=== PATIENT | female | born 1995 | race Caucasian/White ===

== ENCOUNTER 2017-03-08 13:14 | Outpatient (CLI) | payer MEDICAID ==
[2017-03-08 14:58] LABS: APPEARANCE,URINE SLIGHTLY-CLOUDY; BILIRUBIN,URINE NEGATIVE (NEGATIVE); GLUCOSE, URINE NEGATIVE (NEGATIVE); KETONES,URINE NEGATIVE (NEGATIVE); LEUKOCYTE ESTERASE,URINE SMALL (NEGATIVE); NITRITE,URINE NEGATIVE (NEGATIVE); PROTEIN,URINE 30 mg/dL (NEGATIVE); URIC ACID CRYSTALS,URINE MODERATE /HPF
[2017-03-08 15:36] LABS: URINE BARBITURATES SCREEN NEGATIVE; URINE METHADONE SCREEN NEGATIVE; URINE OPIATES LOW NEGATIVE; URINE PHENCYCLIDINE SCREEN NEGATIVE
--- NOTE | 2017-03-08 17:17 | RADIOLOGY REPORT (SQ) ---
EXAM DESCRIPTION: U/S OB LIMITED COMPLETED DATE/TIME: 03/08/2017 5:07 pm REASON FOR STUDY: Cervical length, R/O labor at 28.3 EGA COMPARISON: None. TECHNIQUE: Limited transabdominal grayscale ultrasound for evaluation of specific requested obstetri tha parameters. LIMITATIONS: None. FINDINGS: CERVICAL LENGTH: 2.4 cm Closed. FHR: 171 beats per minute. PRESENTATION: Cephalic. OTHER: No other significant findings. IMPRESSION: LIMITED OBSTETRICAL ULTRASOUND WITH MEASURED PARAMETERS DELINEATED ABOVE. Trimester of : Third trimester - 28 weeks to delivery. TECHNICAL DOCUMENTATION: JOB ID: [id number] [employer]- All Rights Reserved
[2017-03-08] MEDS ORDERED: BETAMET ACET/BETAMET NA INJ 6 MG/1 ML IM ONE ×2 (17:31)
[2017-03-08] MEDS ORDERED: BETAMET ACET/BETAMET NA INJ 6 MG/1 ML ONE (17:41)
== END 2017-03-08 18:16 | disposition home or self-care (01) ==
LOC: LC 13:14
PROVIDERS: ATTEND Obstetrics & Gynecology
DX: O46.90 Antepartum hemorrhage, unspecified, unspecified trimester (principal); E86.0 Dehydration
CPT/HCPCS: 81001; 80307; 76815; J0702

== ENCOUNTER → 2017-03-09 | Outpatient (CLI) | payer MEDICAID ==
[~2017-03-09] MED LIST: BETAMET ACET/BETAMET NA INJ 6 MG/1 ML ONE
== END ==
LOC: LC 17:53
PROVIDERS: ATTEND Obstetrics & Gynecology
DX: Z34.90 Encounter for supervision of normal pregnancy, unspecified, unspecified trimester (principal)
CPT/HCPCS: 96372; J0702

== ENCOUNTER 2017-04-07 12:09 | Outpatient (CLI) | payer MEDICAID ==
[2017-04-07 13:00] LABS: AMORPHOUS SEDIMENT,URINE TRACE /HPF; APPEARANCE,URINE CLOUDY; BILIRUBIN,URINE NEGATIVE (NEGATIVE); GLUCOSE, URINE NEGATIVE (NEGATIVE); KETONES,URINE NEGATIVE (NEGATIVE); LEUKOCYTE ESTERASE,URINE SMALL (NEGATIVE); NITRITE,URINE NEGATIVE (NEGATIVE); PROTEIN,URINE 30 mg/dL (NEGATIVE); URINE SPECIFIC GRAVITY 1.027
[2017-04-07 13:14] LABS: URINE BARBITURATES SCREEN NEGATIVE; URINE METHADONE SCREEN NEGATIVE; URINE OPIATES LOW NEGATIVE; URINE PHENCYCLIDINE SCREEN NEGATIVE
--- NOTE | 2017-04-07 14:56 | Non Stress Test Report ---
Non Stress Test Datetime Report Generated by CPN: 04/07/2017 14:55 DEMOGRAPHIC EGA NST: 32.5 INDICATION Indication for Study: Other Indication for Study (NST) Other: Sycnopal episode and abdominal pain MONITORING Monitor Explained: Monitor Explained; Test Explained; Patient Verbalized Understanding Time on Monitor: 04/07/2017 12:25 Time off Monitor: 04/07/2017 14:06 NST Duration: 101 NST INTERVENTIONS NST Interventions: PO Hydration; Reposition Patient Physician Notified NST: Dr. Bermeo, strip reviewed by provider BABY A: [id number] BABY A Movement : Present Contraction Frequency : 1 UC traced FHR Baseline : 135 Accelerations : 15X15 Decelerations : Variable Variability : Moderate 6-25bpm NST Review: Meets Criteria for Reactive NST NST Review and Verified By : GEOVANNY Wagn Results: Reactive NST REPORT Report Trigger: Send Report
--- NOTE | 2017-04-07 15:13 | RADIOLOGY REPORT (SQ) ---
EXAM DESCRIPTION: U/S OB LIMITED COMPLETED DATE/TIME: 04/07/2017 2:44 pm REASON FOR STUDY: Placenta position COMPARISON: 03/08/2017 TECHNIQUE: Limited transabdominal grayscale ultrasound for evaluation of specific requested obstetri tha parameters. LIMITATIONS: None. FINDINGS: Placenta is anterior, grade 1. Along the superior and rightward margin of the placenta, a small less than 3 cm retroplacental fluid collection is present. This could represent a small hemat belkis or abruption. This finding was discussed with Dr. Bermeo, 1445 hours 04/07/2017. ESTELLE: 16.1 cm. FHR: 163 beats per minute. PRESENTATION: Cephalic. OTHER: No other significant findings. IMPRESSION: Small less than 3 cm retroplacental fluid collection along the superior and rightward as pect of a anterior placenta. This may represent a small hemorrhage. Findings discussed with Dr. Jacklyn valdez Trimester of : Third trimester - 28 weeks to delivery. TECHNICAL DOCUMENTATION: JOB ID: [id number] [employer]- All Rights Reserved
== END 2017-04-07 14:33 | disposition home or self-care (01) ==
LOC: LC 12:09
PROVIDERS: ATTEND Student in an Organized Health Care Education/Training Program
DX: O26.893 Other specified pregnancy related conditions, third trimester (principal); R55 Syncope and collapse; Z3A.32 32 weeks gestation of pregnancy
CPT/HCPCS: 59025; 76815; 80307; 81001; 82962

== ENCOUNTER 2017-04-07 14:42 | Emergency (ER) | payer MEDICAID ==
[2017-04-07 14:59] VITALS: BP 136/71
--- NOTE | 2017-04-07 15:16 | ER Document Report ---
ED Medical Screen (RME) - General Chief Complaint: Head Injury with LOC Stated Complaint: FALL/HEAD INJURY Time Seen by Provider: 04/07/17 15:13 Notes: Patient is currently 32 weeks . She states that she was shopping today when she became lightheaded and "passed out". She states she did hit her head. She states the loss of consciousness lasted for about 2 minutes she was told by her friend. Patient has already been to the [facility] floor for evaluation. She states he did do an ultrasound just before she came to the emergency department. She states she was told that everything looked "okay". However she said that they did tell her they would notify her with further results. Patient states she has some mild right-sided abdominal pain but no vaginal bleeding or discharge. TRAVEL OUTSIDE OF THE [place] IN LAST 30 DAYS: No - Related Data Allergies/Adverse Reactions: No Known Allergies Allergy (Verified 04/07/17 13:44) Past Medical History - Social History Chew tobacco use (# tins/day): No Frequency of alcohol use: None Drug Abuse: None Renal/ Medical History: Denies: Hx Peritoneal Dialysis Surgical Hx: Negative - Immunizations Hx Diphtheria, Pertussis, Tetanus Vaccination: Yes History of Influenza Vaccine for 03/2017 - 08/2017 Season: No Physical Exam - Vital signs Vitals: Temp Pulse Resp BP Pulse Ox 98.7 F 94 16 136/71 H 95 04/07/17 14:56 04/07/17 14:56 04/07/17 14:56 04/07/17 14:56 04/07/17 14:56 Course - Vital Signs Vital signs: Temp Pulse Resp BP Pulse Ox 98.7 F 94 16 136/71 H 95 04/07/17 14:56 04/07/17 14:56 04/07/17 14:56 04/07/17 14:56 04/07/17 14:56
[2017-04-07 15:37] LABS: ABSOLUTE BASOPHILS # (AUTO) 0.1 10^3/uL (0.0-0.2); ABSOLUTE EOSINOPHILS # (AUTO) 0.1 10^3/uL (0.0-0.6); ABSOLUTE LYMPHOCYTES (AUTO) 1.6 10^3/uL (0.5-4.7); ABSOLUTE MONOCYTES (AUTO) 0.8 10^3/uL (0.1-1.4); ABSOLUTE NEUT (AUTO) 16.3 10^3/uL (1.7-8.2); BASOPHILS % (AUTO) 0.3 % (0-2); EOSINOPHILS % (AUTO) 0.6 % (0-6); HEMATOCRIT 34.6 % (36.0-47.0); HEMOGLOBIN 12.1 g/dL (12.0-15.5); HGB HCT DIFFERENCE 1.7; LYMPHOCYTES % (AUTO) 8.5 % (13-45); MEAN CORPUSCULAR HEMOGLOBIN 28.4 pg (27.0-33.4); MEAN CORPUSCULAR VOLUME 81 fl (80-97); MONOCYTES % (AUTO) 4.1 % (3-13); RED BLOOD COUNT 4.28 10^6/uL (3.72-5.28); RED CELL DISTRIBUTION WIDTH 14.4 % (11.5-14.0); SEGMENTED NEUTROPHILS % (AUTO) 86.5 % (42-78); WHITE BLOOD COUNT 18.9 10^3/uL (4.0-10.5)
[2017-04-07 15:54] LABS: ALANINE AMINOTRANSFERASE 23 U/L (9-52); ALBUMIN 3.8 g/dL (3.5-5.0); ALKALINE PHOSPHATASE 164 U/L (38-126); ANION GAP 13 (5-19); ASPARTATE AMINO TRANSFERASE 14 U/L (14-36); BILIRUBIN,DIRECT 0.4 mg/dL (0.0-0.4); BILIRUBIN,TOTAL 0.4 mg/dL (0.2-1.3); BLOOD UREA NITROGEN 7 mg/dL (7-20); CALCIUM 9.4 mg/dL (8.4-10.2); CARBON DIOXIDE 22 mmol/L (22-30); CHLORIDE 102 mmol/L (98-107); CREATININE RESULT 0.55 mg/dL (0.52-1.25); GLUCOSE 101 mg/dL (75-110); POTASSIUM 4.4 mmol/L (3.6-5.0); SODIUM 136.7 mmol/L (137-145); TOTAL PROTEIN 6.6 g/dL (6.3-8.2)
[2017-04-07 15:55] LABS: APPEARANCE,URINE SLIGHTLY-CLOUDY; BILIRUBIN,URINE NEGATIVE (NEGATIVE); GLUCOSE, URINE NEGATIVE (NEGATIVE); KETONES,URINE TRACE mg/dL (NEGATIVE); LEUKOCYTE ESTERASE,URINE SMALL (NEGATIVE); NITRITE,URINE NEGATIVE (NEGATIVE); PROTEIN,URINE 30 mg/dL (NEGATIVE)
[2017-04-07] MEDS ORDERED: NORMAL SALINE 1000 ML 1,000 ML IV ONE (16:04)
--- NOTE | 2017-04-07 16:43 | ER Document Report ---
ED General - General Chief Complaint: Head Injury with LOC Stated Complaint: FALL/HEAD INJURY Time Seen by Provider: 04/07/17 15:13 Mode of Arrival: Ambulatory Information source: Patient Notes: Patient states she was shopping today at a clothing store when she began to feel cold and lightheaded. She states the next thing she knew she was on the ground. She states she was told by the person she was with that she passed out for about 2 minutes. She states she was told she did hit the back of her head when she fell. She states she does have some minor posterior head pain. She also has some right sided abdominal pain. He denies any vaginal discharge or bleeding. She does no longer feel dizzy but is slightly weak. Patient denies any chronic medical problems or previous surgeries. The abdominal pain is mild. It is constant. It is worse when touched and better if left alone. There is no radiation of the pain. TRAVEL OUTSIDE OF THE [place] IN LAST 30 DAYS: No - Related Data Allergies/Adverse Reactions: No Known Allergies Allergy (Verified 04/07/17 13:44) Past Medical History - General Information source: Patient - Social History Smoking Status: Never Smoker Chew tobacco use (# tins/day): No Frequency of alcohol use: None Drug Abuse: None Family History: Reviewed & Not Pertinent Patient has suicidal ideation: No Patient has homicidal ideation: No Renal/ Medical History: Denies: Hx Peritoneal Dialysis Surgical Hx: Negative - Immunizations Hx Diphtheria, Pertussis, Tetanus Vaccination: Yes Review of Systems - Review of Systems Constitutional: denies: Chills, Fever Cardiovascular: denies: Chest pain, Palpitations Respiratory: denies: Cough, Short of breath -: Yes All other systems reviewed and negative Physical Exam - Vital signs Vitals: Temp Pulse Resp BP Pulse Ox 98.7 F 94 16 136/71 H 95 04/07/17 14:56 04/07/17 14:56 04/07/17 14:56 04/07/17 14:56 04/07/17 14:56 Interpretation: Hypertensive - General General appearance: Appears well, Alert - HEENT Head: Normocephalic, Atraumatic Eyes: Normal Pupils: PERRL - Respiratory Respiratory status: No respiratory distress Chest status: Nontender Breath sounds: Normal Chest palpation: Normal - Cardiovascular Rhythm: Tachycardia Heart sounds: Normal auscultation Murmur: No - Abdominal Inspection: Normal Distension: No distension Bowel sounds: Normal Tenderness: Tender - Patient has mild abdominal tenderness to palpation of the right upper quadrant. She has an obvious gravid uterus. Organomegaly: No organomegaly - Back Back: Normal, Nontender - Extremities General upper extremity: Normal inspection, Nontender, Normal color, Normal ROM , Normal temperature General lower extremity: Normal inspection, Nontender, Normal color, Normal ROM , Normal temperature, Normal weight bearing. No: Stanislav's sign - Neurological Neuro grossly intact: Yes Cognition: Normal Orientation: AAOx4 Bowen Coma Scale Eye Opening: Spontaneous [place] Coma Scale Verbal: Oriented [place] Coma Scale Motor: Obeys Commands [place] Coma Scale Total: 15 Speech: Normal Motor strength normal: LUE, RUE, LLE, RLE Sensory: Normal - Psychological Associated symptoms: Normal affect, Normal mood - Skin Skin Temperature: Warm Skin Moisture: Dry Skin Color: Normal Course - Re-evaluation Re-evalutation: 04/07/17 16:40 At approximately 4:40 PM patient is resting comfortably in a chair and smiling. IV fluids are running. Patient is noticed by laboratories to have an elevated white blood cell count of 19. She is also noticed to have a urinary tract infection. I have called and discussed the case with labor and delivery. They state that when the patient was up there and ultrasound was performed. They are concerned that the ultrasound may show a small hemorrhage. They have asked the patient be returned to the labor and delivery floor for observation admission. I did review laboratories with the intake nurse on labor and delivery. She states they will give the patient antibiotics for the urinary tract infection. The admitting physician will be Dr. Bermeo. - Vital Signs Vital signs: Temp Pulse Resp BP Pulse Ox 98.7 F 94 16 136/71 H 95 04/07/17 14:56 04/07/17 14:56 04/07/17 14:56 04/07/17 14:56 04/07/17 14:56 - Laboratory Result Diagrams: 04/07/17 15:15 04/07/17 15:15 Laboratory results interpreted by me: 04/07/17 04/07/17 04/07/17 15:15 15:15 15:15 WBC 18.9 H Hct 34.6 L RDW 14.4 H Seg Neutrophils % 86.5 H Lymphocytes % 8.5 L Absolute Neutrophils 16.3 H Sodium 136.7 L Alkaline Phosphatase 164 H Urine Protein 30 H Urine Ketones TRACE H Urine Urobilinogen 4.0 H Ur Leukocyte Esterase SMALL H - EKG Interpretation by Me EKG shows normal: Sinus rhythm Rate: Tachycardia Rhythm: NSR Silas/QRS: No: Right axis deviation, Left axis deviation - Rate is 113 Discharge - Discharge Clinical Impression: Syncope and collapse UTI (urinary tract infection) during Qualifiers: Trimester: third trimester Qualified Code(s): O23.43 - Unspecified infection of urinary tract in , third trimester Condition: Fair Disposition: HOME, SELF-CARE Instructions: Urinary Tract Infection ([facility]) Additional Instructions: Please go straight to the labor and delivery floor for observation admission Forms: Elevated Blood Pressure
--- NOTE | 2017-04-07 17:06 | RADIOLOGY REPORT (SQ) ---
EXAM DESCRIPTION: CT HEAD WITHOUT COMPLETED DATE/TIME: 04/07/2017 4:53 pm REASON FOR STUDY: 2 minute LOC COMPARISON: None. TECHNIQUE: Axial images acquired through the brain without intravenous contrast. Images reviewed wi th bone, brain and subdural windows. Images stored on PACS. All CT scanners at this facility use dose modulation, iterative reconstruction, and/or weight based d osing when appropriate to reduce radiation dose to as low as reasonably achievable (ALARA). [facility]: Dose Right [facility]: CareDose [facility]: Dose Right [facility]: Teradose 4D [facility]: Smart Gaming for Good RADIATION DOSE: Up-to-date CT equipment and radiation dose reduction techniques were employed. CTDIv ol: 64.6 mGy. DLP: 1163 mGy-cm. mGy. LIMITATIONS: None. FINDINGS: VENTRICLES: Normal size and contour. CEREBRUM: No masses. No hemorrhage. No midline shift. No evidence for acute infarction. Normal gra y/white matter differentiation. No areas of low density in the white matter. CEREBELLUM: No masses. No hemorrhage. No alteration of density. No evidence for acute infarction. EXTRAAXIAL SPACES: No fluid collections. No masses. ORBITS AND GLOBE: No intra- or extraconal masses. Normal contour of globe without masses. CALVARIUM: No fracture. PARANASAL SINUSES: No fluid or mucosal thickening. SOFT TISSUES: No mass or hematoma. OTHER: No other significant finding. IMPRESSION: NORMAL BRAIN CT WITHOUT CONTRAST. EVIDENCE OF ACUTE STROKE: NO. COMMENT: Quality ID # [id number]: Final reports with documentation of one or more dose reduction techniques (e.g., Automated exposure control, adjustment of the mA and/or kV according to patient size, use of iterative reconstruction technique) TECHNICAL DOCUMENTATION: JOB ID: [id number]- All Rights Reserved
--- NOTE | 2017-04-07 17:36 | EKG REPORT ---
SEVERITY:- BORDERLINE ECG - SINUS TACHYCARDIA BORDERLINE T ABNORMALITIES, INFERIOR LEADS : Confirmed by: Noelle Walter MD 07-Apr-2017 17:35:00
== END 2017-04-07 17:00 | disposition home or self-care (01) ==
LOC: ER 14:42
DX: O23.43 Unspecified infection of urinary tract in pregnancy, third trimester (principal); R55 Syncope and collapse; R00.0 Tachycardia, unspecified; S09.90XA Unspecified injury of head, initial encounter; W19.XXXA Unspecified fall, initial encounter
CPT/HCPCS: 93005; 99285; 36415; 85025; 80053; 81001; 70450; 93010; J7030

== ENCOUNTER 2017-04-07 17:22 | Observation (INO) | payer MEDICAID ==
--- NOTE | 2017-04-07 17:25 | L&D Progress Notes ---
PROGRESS NOTES Datetime Report Generated by CPN: 04/07/2017 17:25 PROGRESS NOTE Comment: u/s report reveals 3 cm superior edge of placenta anterior placenta pt in ED to return for 24 hour observation KB Comment: 22 yo presents after falling at home EDC 12.8.17 late transfer from [facility]- surveillance friend was present and saw her hit her head seen in ED briefly and sent up to Labor and Delivery pt denies abdominal trauma abdomen soft and nontender FHTs reactive bilateral ligament pain denies vaginal bleeding/ no lof random blood sugar 69 limited ob u/s for placental location at bedside Rh positive uterine irritability pt to ED for eval MEMBRANES Membranes: Intact FETUS A FHR - Baseline: 130 Monitoring: External US Variability: Moderate 6-25bpm Accelerations: 15X15 : 32.5 SIGNATURE SIGNATURE: [id number];[id number] SIGNATURE: [id number] Assignment: Verónica Bermeo MD Assignment: Verónica Bermeo MD : Verónica Bermeo MD Signature: with User ID: Freddy Signature: with User ID: Freddy : with User ID: Freddy : with User ID: Freddy
[2017-04-07] MEDS ORDERED: RINGERS SOLUTION,LACTATED 1,000 ML IV PRN (17:27)
--- NOTE | 2017-04-07 19:02 | Non Stress Test Report ---
Non Stress Test Datetime Report Generated by CPN: 04/07/2017 19:02 DEMOGRAPHIC EGA NST: 32.5 INDICATION Indication for Study: Ordered by Provider; Other Indication for Study (NST) Other: status post fall MONITORING Monitor Explained: Monitor Explained; Test Explained; Patient Verbalized Understanding Time on Monitor: 04/07/2017 17:53 Time off Monitor: 04/07/2017 18:49 NST Duration: 56 NST INTERVENTIONS NST Interventions: PO Hydration; IV Fluids Physician Notified NST: Dr. Bermeo, provider reviewed strip BABY A: [id number] BABY A Movement : Present Contraction Frequency : 1 UC traced FHR Baseline : 145 Accelerations : 15X15 Decelerations : None Variability : Moderate 6-25bpm NST Review: Meets Criteria for Reactive NST NST Review and Verified By : Analia clinton RN NSJames Results: Reactive NST REPORT Report Trigger: Send Report
[2017-04-07 20:36] LABS: TOTAL RBC COUNT 2013; VOL OF FETOMATERNAL HEMORRHAGE 0 ML (0)
[2017-04-07 20:37] LABS: TYPE IN FILE? TYPE NOT IN FILE
[2017-04-08] MEDS ORDERED: PHENAZOPYRIDINE HCL 100 MG TABLET PO PRN (11:26)
[2017-04-08] MEDS ORDERED: NITROFURANTOIN MONOHYD/M-CRYST 100 MG CAPSULE PO ONE (11:30)
[2017-04-08 14:01] LABS: AMORPHOUS SEDIMENT,URINE 2+ /HPF; APPEARANCE,URINE CLOUDY; BILIRUBIN,URINE NEGATIVE (NEGATIVE); GLUCOSE, URINE NEGATIVE (NEGATIVE); KETONES,URINE NEGATIVE (NEGATIVE); LEUKOCYTE ESTERASE,URINE SMALL (NEGATIVE); NITRITE,URINE NEGATIVE (NEGATIVE); PROTEIN,URINE NEGATIVE (NEGATIVE); URINE SPECIFIC GRAVITY 1.012
[2017-04-08] MEDS: NITROFURANTOIN MONOHYD/M-CRYST 100 MG CAPSULE PO SCH (17:23)
--- NOTE | 2017-04-08 17:26 | RADIOLOGY REPORT (SQ) ---
EXAM DESCRIPTION: U/S OB LIMITED COMPLETED DATE/TIME: 04/08/2017 4:11 pm REASON FOR STUDY: placenta status; 3cm fluid collection on 04/07 COMPARISON: 04/07/2017 TECHNIQUE: Limited transabdominal grayscale ultrasound for evaluation of specific requested obstetri tha parameters. LIMITATIONS: None. FINDINGS: CERVICAL LENGTH: Not measured. Closed. ESTELLE: 19 cm. FHR: 145 beats per minute. PRESENTATION: Cephalic. OTHER: No retroplacental fluid collection is appreciated on today's study. IMPRESSION: LIMITED OBSTETRICAL ULTRASOUND WITH MEASURED PARAMETERS DELINEATED ABOVE. Trimester of : Third trimester - 28 weeks to delivery. TECHNICAL DOCUMENTATION: JOB ID: [id number] [employer]- All Rights Reserved
--- NOTE | 2017-04-08 22:16 | PDOC DISCHARGE SUMMARY ---
General - Admit/Disc Date/PCP Admission Date/Primary Care Provider: 04/07/17 19:50 AKIRA SCHULTE MD Discharge Date: 04/09/17 - Discharge Diagnosis (1) Syncope and collapse Is this a current diagnosis for this admission?: Yes (2) UTI (urinary tract infection) during Is this a current diagnosis for this admission?: Yes - Additional Information Home Medications: Prenat 115/Iron Fum/Folic/Dss [ 19 Tablet] 1 each PO DAILY 03/08/17 History of Present Illness History of Present Illness: CARLOS A KIDD is a 22 year old female Hospital Course Hospital Course: no bleeding, irregular contractions only. no dizziness. mild headache Physical Exam - Physical Exam Vital Signs: Temp Pulse Resp BP Pulse Ox 98.4 F 76 20 120/67 98 04/08/17 20:01 04/08/17 20:01 04/08/17 20:01 04/08/17 20:01 04/08/17 20:01 Intake & Output 04/07/17 04/08/17 04/09/17 06:59 06:59 06:59 Intake Total 500 Balance 500 Weight 97.9 kg General appearance: PRESENT: no acute distress, cooperative GI/Abdominal exam: PRESENT: soft - gravid Result Laboratory Results: 04/08/17 13:20 Urine Color YELLOW Urine Appearance CLOUDY Urine pH 7.0 Ur Specific [place] 1.012 Urine Protein NEGATIVE Urine Glucose (UA) NEGATIVE Urine Ketones NEGATIVE Urine Blood NEGATIVE Urine Nitrite NEGATIVE Ur Leukocyte Esterase SMALL H Urine WBC (Auto) 53 Urine RBC (Auto) 1 Impressions: Obstetrics Ultrasound 04/08/17 15:00 IMPRESSION: LIMITED OBSTETRICAL ULTRASOUND WITH MEASURED PARAMETERS DELINEATED ABOVE. Trimester of : Third trimester - 28 weeks to delivery. Status: Image reviewed by me Plan Time Spent: Less than 30 Minutes - patient to discharge home. Labs and sono are reassuring for no abruption. monitoring also reassuring. to f/u with [facility] next week. strict precautions.
[2017-04-08] MEDS ORDERED: ACETAMINOPHEN 325 MG TABLET PO ONE (22:30)
[2017-04-09] MEDS: NITROFURANTOIN MONOHYD/M-CRYST 100 MG CAPSULE PO SCH (09:32)
[2017-04-09 12:16] VITALS: BP 114/68
--- NOTE | 2017-04-09 12:27 | RADIOLOGY REPORT (SQ) ---
EXAM DESCRIPTION: U/S PROFILE W/O STRESS COMPLETED DATE/TIME: 04/09/2017 11:59 am REASON FOR STUDY: BPP COMPARISON: None. TECHNIQUE: Limited ramirez-scale realtime and static images of the fetus to measure specified parameter s. LIMITATIONS: None. FINDINGS: HEART RATE: 157 beats per minute. ESTELLE: 13.1 cm. POSTURE AND TONE: 2 points. MOVEMENT: 2 points. BREATHING MOVEMENT: 2 points. QUALITATIVE ESTELLE: 2 points. OTHER: No other significant finding. IMPRESSION: BIOPHYSICAL PROFILE: 01/26. Trimester of : Third - 28 weeks to delivery COMMENT: BREATHING MOVEMENTS: 2 POINTS: PRESENT 0 POINTS: ABSENT MOTION: 2 POINTS: PRESENT 0 POINTS: ABSENT TONE: 2 POINTS: PRESENT 0 POINTS: ABSENT AMNIOTIC FLUID VOLUME: 2 POINTS: LARGEST POCKET GREATER THAN 2 CM DEPTH. 0 POINTS: NO POCKET OF 2 CM. TECHNICAL DOCUMENTATION: JOB ID: [id number] [employer]- All Rights Reserved
== END 2017-04-09 15:26 | disposition home or self-care (01) ==
LOC: LC 17:22 → LR 19:50 → 2S 20:35
PROVIDERS: ADMIT Student in an Organized Health Care Education/Training Program; ATTEND Student in an Organized Health Care Education/Training Program
PROC: 4A0HXCZ Measurement of Products of Conception, Cardiac Rate, External Approach (ICD-10-PCS; principal; 2017-04-07)
DX: O26.893 Other specified pregnancy related conditions, third trimester (principal); R55 Syncope and collapse; W19.XXXA Unspecified fall, initial encounter; Y92.009 Unspecified place in unspecified non-institutional (private) residence as the place of occurrence of the external cause; O23.43 Unspecified infection of urinary tract in pregnancy, third trimester; R51 Headache; O62.9 Abnormality of forces of labor, unspecified; E86.0 Dehydration; O24.419 Gestational diabetes mellitus in pregnancy, unspecified control; Z3A.32 32 weeks gestation of pregnancy
CPT/HCPCS: 59025; 86900; 86901; 36415; 87086; 86850; 82962 ×3; 81001; 85460; 76815; 76819; J3490 ×4; J8499

== ENCOUNTER 2017-04-19 14:26 | Outpatient (CLI) | payer MEDICAID ==
[2017-04-19 15:01] LABS: APPEARANCE,URINE SLIGHTLY-CLOUDY; BILIRUBIN,URINE NEGATIVE (NEGATIVE); GLUCOSE, URINE 50 mg/dL (NEGATIVE); KETONES,URINE NEGATIVE (NEGATIVE); LEUKOCYTE ESTERASE,URINE LARGE (NEGATIVE); NITRITE,URINE NEGATIVE (NEGATIVE); PROTEIN,URINE NEGATIVE (NEGATIVE); URINE SPECIFIC GRAVITY 1.018; UROBILINOGEN,URINE NEGATIVE mg/dL (<2.0)
[2017-04-19] MEDS ORDERED: CEFTRIAXONE INJ 1000 MG VIAL IM ONE (15:29)
[2017-04-19] MEDS ORDERED: LIDOCAINE 1% INJ-PF (10 MG/ML) 30 ML SDV INJ ONE (15:29)
[2017-04-19] MEDS ORDERED: LIDOCAINE 1% INJ-PF (10 MG/ML) 30 ML SDV ONE (15:34)
[2017-04-19] MEDS ORDERED: CEFTRIAXONE INJ 1000 MG VIAL ONE (15:34)
[2017-04-19 15:35] LABS: URINE BARBITURATES SCREEN NEGATIVE; URINE METHADONE SCREEN NEGATIVE; URINE OPIATES LOW NEGATIVE; URINE PHENCYCLIDINE SCREEN NEGATIVE
--- NOTE | 2017-04-20 11:08 | Non Stress Test Report ---
Non Stress Test Datetime Report Generated by CPN: 04/20/2017 11:08 DEMOGRAPHIC EGA NST: 34.3 INDICATION Indication for Study: Ordered by Provider Indication for Study (NST) Other: LC MONITORING Monitor Explained: Monitor Explained; Test Explained; Patient Verbalized Understanding Time on Monitor: 04/19/2017 14:49 Time off Monitor: 04/19/2017 15:50 NST Duration: 61 NST INTERVENTIONS NST Interventions: PO Hydration; Reposition Patient Physician Notified NST: Dr. Lim BABY A: [id number] BABY A Movement : Present Contraction Frequency : 0 FHR Baseline : 135 Accelerations : 15X15 Decelerations : None Variability : Moderate 6-25bpm NST Review: Meets Criteria for Reactive NST NST Review and Verified By : Carmen Caceres RNC NST Results: Reactive NST REPORT Report Trigger: Send Report
== END 2017-04-19 16:03 | disposition home or self-care (01) ==
LOC: LC 14:26
PROVIDERS: ATTEND Obstetrics & Gynecology
PROC: 4A1HXCZ Monitoring of Products of Conception, Cardiac Rate, External Approach (ICD-10-PCS; principal; 2017-04-19)
DX: O9A.213 Injury, poisoning and certain other consequences of external causes complicating pregnancy, third trimester (principal); Z3A.34 34 weeks gestation of pregnancy; S30.1XXA Contusion of abdominal wall, initial encounter; W19.XXXA Unspecified fall, initial encounter; Y93.9 Activity, unspecified; Y92.9 Unspecified place or not applicable; Y99.9 Unspecified external cause status
CPT/HCPCS: 59025; 81001; 80307; J3490; J0696

== ENCOUNTER 2017-04-20 11:10 | Outpatient (CLI) | payer MEDICAID ==
--- NOTE | 2017-04-20 12:29 | Non Stress Test Report ---
Non Stress Test Datetime Report Generated by CPN: 04/20/2017 12:29 DEMOGRAPHIC EGA NST: 34.4 INDICATION Indication for Study: Ordered by Provider MONITORING Monitor Explained: Monitor Explained; Test Explained; Patient Verbalized Understanding Monitor Explained Other: see flowsheet Time on Monitor: 04/20/2017 11:36 Time off Monitor: 04/20/2017 12:20 NST Duration: 44 NST INTERVENTIONS NST Interventions: PO Hydration Physician Notified NST: P. Acosta, CNM BABY A Movement : Present Contraction Frequency : none FHR Baseline : 140 Accelerations : 15X15 Variability : Moderate 6-25bpm NST Review: Meets Criteria for Reactive NST NST Review and Verified By : Analia Dunbar RN NSJames Results: Reactive NST REPORT Report Trigger: Send Report Report Trigger: Send Report
== END 2017-04-20 12:49 | disposition home or self-care (01) ==
LOC: LC 11:10
PROVIDERS: ATTEND Obstetrics & Gynecology
PROC: 4A1HXCZ Monitoring of Products of Conception, Cardiac Rate, External Approach (ICD-10-PCS; principal; 2017-04-20)
DX: O24.419 Gestational diabetes mellitus in pregnancy, unspecified control (principal); O26.893 Other specified pregnancy related conditions, third trimester; R11.2 Nausea with vomiting, unspecified; Z3A.34 34 weeks gestation of pregnancy
CPT/HCPCS: 59025; 82962

== ENCOUNTER 2017-04-27 22:19 | Outpatient (CLI) | payer MEDICAID ==
[2017-04-27 22:53] LABS: APPEARANCE,URINE CLOUDY; BILIRUBIN,URINE SMALL (NEGATIVE); CALCIUM OXALATE CRYSTALS,URINE TOO NUMEROUS TO CNT /HPF; GLUCOSE, URINE NEGATIVE (NEGATIVE); KETONES,URINE NEGATIVE (NEGATIVE); LEUKOCYTE ESTERASE,URINE LARGE (NEGATIVE); NITRITE,URINE NEGATIVE (NEGATIVE); PROTEIN,URINE 30 mg/dL (NEGATIVE); URINE SPECIFIC GRAVITY 1.033
[2017-04-27 23:04] LABS: URINE BARBITURATES SCREEN NEGATIVE; URINE METHADONE SCREEN NEGATIVE; URINE OPIATES LOW NEGATIVE; URINE PHENCYCLIDINE SCREEN NEGATIVE
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
--- NOTE | 2017-05-02 00:16 | Non Stress Test Report ---
Non Stress Test Datetime Report Generated by CPN: 05/02/2017 00:15 DEMOGRAPHIC EGA NST: 35.4 INDICATION Indication for Study: Ordered by Provider Indication for Study (NST) Other: LC MONITORING Monitor Explained: Monitor Explained; Test Explained; Patient Verbalized Understanding Time on Monitor: 04/27/2017 22:37 Time off Monitor: 04/27/2017 23:09 NST Duration: 32 NST INTERVENTIONS NST Interventions: PO Hydration; Reposition Patient Physician Notified NST: Dr. Bermeo BABY A: [id number] BABY A Movement : Present Contraction Frequency : 0 FHR Baseline : 135 Accelerations : 15X15 Decelerations : None Variability : Moderate 6-25bpm NST Review: Meets Criteria for Reactive NST NST Review and Verified By : Carmen Trinh RN NST Results: Reactive NST REPORT Report Trigger: Send Report
== END 2017-04-27 23:20 | disposition home or self-care (01) ==
LOC: LC 22:19
PROVIDERS: ATTEND Student in an Organized Health Care Education/Training Program
PROC: 4A1HXCZ Monitoring of Products of Conception, Cardiac Rate, External Approach (ICD-10-PCS; principal; 2017-04-27)
DX: O47.03 False labor before 37 completed weeks of gestation, third trimester (principal); O9A.213 Injury, poisoning and certain other consequences of external causes complicating pregnancy, third trimester; S06.9X1A Unspecified intracranial injury with loss of consciousness of 30 minutes or less, initial encounter; Y92.89 Other specified places as the place of occurrence of the external cause; W19.XXXA Unspecified fall, initial encounter; Z3A.32 32 weeks gestation of pregnancy
CPT/HCPCS: 59025; 80307; 81001; 87086

== ENCOUNTER 2017-05-04 23:05 | Outpatient (CLI) | payer MEDICAID ==
[2017-05-04 23:59] LABS: APPEARANCE,URINE CLOUDY; BILIRUBIN,URINE NEGATIVE (NEGATIVE); CALCIUM OXALATE CRYSTALS,URINE MANY /HPF; GLUCOSE, URINE NEGATIVE (NEGATIVE); KETONES,URINE NEGATIVE (NEGATIVE); LEUKOCYTE ESTERASE,URINE LARGE (NEGATIVE); NITRITE,URINE NEGATIVE (NEGATIVE); PROTEIN,URINE 30 mg/dL (NEGATIVE)
[2017-05-05 00:11] LABS: URINE BARBITURATES SCREEN NEGATIVE; URINE METHADONE SCREEN NEGATIVE; URINE OPIATES LOW NEGATIVE; URINE PHENCYCLIDINE SCREEN NEGATIVE
--- NOTE | 2017-05-05 01:14 | Non Stress Test Report ---
Non Stress Test Datetime Report Generated by CPN: 05/05/2017 01:14 DEMOGRAPHIC EGA NST: 36.5 INDICATION Indication for Study: Ordered by Provider VITAL SIGNS Temperature - NST: 99.1 Pulse - NST: 90 RESP - NST: 14 NBPSYS NST: 122 NBPDIA NST: 67 MONITORING Monitor Explained: Monitor Explained; Test Explained; Patient Verbalized Understanding Time on Monitor: 05/05/2017 23:18 Time off Monitor: 05/05/2017 00:46 NST Duration: -1352 NST INTERVENTIONS NST Interventions: PO Hydration Physician Notified NST: Dr Muñoz BABY A Movement : Present Contraction Frequency : none FHR Baseline : 150 Accelerations : 15X15 Decelerations : None Variability : Moderate 6-25bpm NST Review: Meets Criteria for Reactive NST NST Review and Verified By : Carmen Trinh RN NST Results: Reactive NST REPORT Report Trigger: Send Report
== END 2017-05-05 01:05 | disposition home or self-care (01) ==
LOC: LC 23:05
PROVIDERS: ATTEND Obstetrics & Gynecology Gynecology
PROC: 4A1HXCZ Monitoring of Products of Conception, Cardiac Rate, External Approach (ICD-10-PCS; principal; 2017-05-04)
DX: O26.893 Other specified pregnancy related conditions, third trimester (principal); Z3A.36 36 weeks gestation of pregnancy
CPT/HCPCS: 59025; 80307; 81001

== ENCOUNTER 2017-05-13 21:28 | Outpatient (CLI) | payer MEDICAID ==
[2017-05-13 22:09] LABS: APPEARANCE,URINE CLOUDY; BILIRUBIN,URINE NEGATIVE (NEGATIVE); GLUCOSE, URINE NEGATIVE (NEGATIVE); KETONES,URINE NEGATIVE (NEGATIVE); LEUKOCYTE ESTERASE,URINE LARGE (NEGATIVE); NITRITE,URINE NEGATIVE (NEGATIVE); PROTEIN,URINE 100 mg/dL (NEGATIVE); URINE SPECIFIC GRAVITY 1.031
[2017-05-13 22:15] LABS: AMNISURE (ROM) NEGATIVE (NEGATIVE)
[2017-05-13 22:30] LABS: URINE BARBITURATES SCREEN NEGATIVE; URINE METHADONE SCREEN NEGATIVE; URINE OPIATES LOW NEGATIVE; URINE PHENCYCLIDINE SCREEN NEGATIVE
[2017-05-13] MEDS ORDERED: RINGERS SOLUTION,LACTATED 1,000 ML IV PRN (22:37)
[2017-05-13] MEDS ORDERED: CEFTRIAXONE 1 GM/D5W RTU 1 GM/50 ML RTUPB IV ONE (22:46)
[2017-05-13 23:24] LABS: ABSOLUTE EOSINOPHILS # (AUTO) 0.2 10^3/uL (0.0-0.6); ABSOLUTE LYMPHOCYTES (AUTO) 2.5 10^3/uL (0.5-4.7); ABSOLUTE NEUT (AUTO) 12.1 10^3/uL (1.7-8.2); BASOPHILS % (AUTO) 0.3 % (0-2); EOSINOPHILS % (AUTO) 1.3 % (0-6); HEMATOCRIT 36.4 % (36.0-47.0); HEMOGLOBIN 12.1 g/dL (12.0-15.5); HGB HCT DIFFERENCE -0.1; LYMPHOCYTES % (AUTO) 15.6 % (13-45); MEAN CORPUSCULAR HEMOGLOBIN 26.9 pg (27.0-33.4); MEAN CORPUSCULAR HGB CONC 33.3 g/dL (32.0-36.0); MEAN CORPUSCULAR VOLUME 81 fl (80-97); MONOCYTES % (AUTO) 6.6 % (3-13); RED CELL DISTRIBUTION WIDTH 14.9 % (11.5-14.0); SEGMENTED NEUTROPHILS % (AUTO) 76.2 % (42-78); WHITE BLOOD COUNT 15.9 10^3/uL (4.0-10.5)
[2017-05-13] MEDS ORDERED: BUTALB/ACETAMINOPHEN/CAFFEINE 1 TAB EACH ONE (23:25)
[2017-05-13 23:44] LABS: ALBUMIN 3.8 g/dL (3.5-5.0); ANION GAP 14 (5-19); BLOOD UREA NITROGEN 10 mg/dL (7-20); CALCIUM 9.2 mg/dL (8.4-10.2); CARBON DIOXIDE 22 mmol/L (22-30); CHLORIDE 102 mmol/L (98-107); CREATININE RESULT 0.53 mg/dL (0.52-1.25); GLUCOSE 73 mg/dL (75-110); POTASSIUM 4.3 mmol/L (3.6-5.0); SODIUM 138.1 mmol/L (137-145); URIC ACID 4.8 mg/dL (2.5-6.2)
[2017-05-13 23:46] LABS: ALANINE AMINOTRANSFERASE 41 U/L (9-52); ALKALINE PHOSPHATASE 203 U/L (38-126); ASPARTATE AMINO TRANSFERASE 20 U/L (14-36); BILIRUBIN,DIRECT 0.4 mg/dL (0.0-0.4); BILIRUBIN,TOTAL 0.5 mg/dL (0.2-1.3); LDH 422 U/L (313-618)
== END 2017-05-14 00:23 | disposition home or self-care (01) ==
LOC: LC 21:28
PROVIDERS: ATTEND Obstetrics & Gynecology
PROC: 4A1HXCZ Monitoring of Products of Conception, Cardiac Rate, External Approach (ICD-10-PCS; principal; 2017-05-13)
DX: O23.43 Unspecified infection of urinary tract in pregnancy, third trimester (principal); O99.283 Endocrine, nutritional and metabolic diseases complicating pregnancy, third trimester; E86.0 Dehydration; Z3A.37 37 weeks gestation of pregnancy
CPT/HCPCS: 59025; 84112; 36415; 87086; 82962; 83615; 84550; 85025; 81005; 87077; 80053; 87081; 80307; J3490; J0696

== ENCOUNTER 2017-05-25 02:07 | Outpatient (CLI) | payer MEDICAID ==
[2017-05-25 02:46] LABS: APPEARANCE,URINE SLIGHTLY-CLOUDY; BILIRUBIN,URINE NEGATIVE (NEGATIVE); GLUCOSE, URINE NEGATIVE (NEGATIVE); KETONES,URINE NEGATIVE (NEGATIVE); LEUKOCYTE ESTERASE,URINE LARGE (NEGATIVE); NITRITE,URINE NEGATIVE (NEGATIVE); PROTEIN,URINE 30 mg/dL (NEGATIVE); URINE SPECIFIC GRAVITY 1.006
[2017-05-25 03:11] LABS: URINE BARBITURATES SCREEN NEGATIVE; URINE METHADONE SCREEN NEGATIVE; URINE OPIATES LOW NEGATIVE; URINE PHENCYCLIDINE SCREEN NEGATIVE
== END 2017-05-25 03:53 | disposition home or self-care (01) ==
LOC: LC 02:07
PROVIDERS: ATTEND Obstetrics & Gynecology Gynecology
PROC: 4A1HXCZ Monitoring of Products of Conception, Cardiac Rate, External Approach (ICD-10-PCS; principal; 2017-05-25)
DX: O47.1 False labor at or after 37 completed weeks of gestation (principal); Z3A.39 39 weeks gestation of pregnancy
CPT/HCPCS: 59025; 80307; 81005

== ENCOUNTER 2017-05-30 09:08 | Outpatient (CLI) | payer MEDICAID ==
--- NOTE | 2017-05-30 09:18 | Non Stress Test Report ---
Non Stress Test Datetime Report Generated by CPN: 05/30/2017 09:18 DEMOGRAPHIC EGA NST: 39.4 INDICATION Indication for Study: Ordered by Provider URINE RESULTS Urine Protein, NST: Positive Urine Ketones - NST: Negative Urine Glucose - NST: Negative Urine Blood - NST: Positive MONITORING Monitor Explained: Monitor Explained; Test Explained; Patient Verbalized Understanding Time on Monitor: 05/25/2017 02:15 Time off Monitor: 05/25/2017 03:33 NST Duration: 78 NST INTERVENTIONS NST Interventions: PO Hydration; Reposition Patient Physician Notified NST: Dr Muñoz BABY A: [id number] BABY A Movement : Present Contraction Frequency : 1-7 FHR Baseline : 125 Accelerations : 15X15 Decelerations : None Variability : Moderate 6-25bpm NST Review: Meets Criteria for Reactive NST NST Review and Verified By : Terrell Ramires RN NST Results: Reactive NST REPORT Report Trigger: Send Report
[2017-05-30 10:05] LABS: AMNISURE (ROM) NEGATIVE (NEGATIVE)
[2017-05-30 10:14] LABS: APPEARANCE,URINE TURBID; BILIRUBIN,URINE NEGATIVE (NEGATIVE); GLUCOSE, URINE NEGATIVE (NEGATIVE); KETONES,URINE NEGATIVE (NEGATIVE); LEUKOCYTE ESTERASE,URINE LARGE (NEGATIVE); NITRITE,URINE NEGATIVE (NEGATIVE); PROTEIN,URINE 30 mg/dL (NEGATIVE); URINE SPECIFIC GRAVITY 1.014
[2017-05-30 10:34] LABS: URINE BARBITURATES SCREEN NEGATIVE; URINE METHADONE SCREEN NEGATIVE; URINE OPIATES LOW NEGATIVE; URINE PHENCYCLIDINE SCREEN NEGATIVE
[2017-05-30] MEDS ORDERED: METRONIDAZOLE 500 MG TABLET PO ONE (11:30)
== END 2017-05-30 11:00 | disposition home or self-care (01) ==
LOC: LC 09:08
PROVIDERS: ATTEND Obstetrics & Gynecology Gynecology
PROC: 4A1HXCZ Monitoring of Products of Conception, Cardiac Rate, External Approach (ICD-10-PCS; principal; 2017-05-30)
DX: O26.893 Other specified pregnancy related conditions, third trimester (principal); N89.8 Other specified noninflammatory disorders of vagina; Z3A.40 40 weeks gestation of pregnancy
CPT/HCPCS: 59025; 84112; 87210; 81005; 80307; 87491; 87591; J3490

== ENCOUNTER 2017-06-03 16:12 | Outpatient (CLI) | payer MEDICAID ==
--- NOTE | 2017-06-03 16:16 | Non Stress Test Report ---
Non Stress Test Datetime Report Generated by CPN: 06/03/2017 16:15 DEMOGRAPHIC EGA NST: 40.2 INDICATION Indication for Study: Other Indication for Study (NST) Other: labor check MONITORING Monitor Explained: Monitor Explained; Test Explained; Patient Verbalized Understanding Time on Monitor: 05/30/2017 10:21 Time off Monitor: 05/30/2017 10:47 NST Duration: 26 NST INTERVENTIONS NST Interventions: PO Hydration; Reposition Patient Physician Notified NST: Dr Muñoz BABY A: [id number] BABY A Movement : Present Contraction Frequency : occasional FHR Baseline : 145 Accelerations : 15X15 Decelerations : None Variability : Moderate 6-25bpm NST Review: Meets Criteria for Reactive NST NST Review and Verified By : GEOVANNY Lane Results: Reactive NST REPORT Report Trigger: Send Report
[2017-06-03 16:49] LABS: APPEARANCE,URINE CLOUDY; BILIRUBIN,URINE NEGATIVE (NEGATIVE); GLUCOSE, URINE NEGATIVE (NEGATIVE); KETONES,URINE NEGATIVE (NEGATIVE); LEUKOCYTE ESTERASE,URINE MODERATE (NEGATIVE); NITRITE,URINE NEGATIVE (NEGATIVE); PROTEIN,URINE NEGATIVE (NEGATIVE); URINE SPECIFIC GRAVITY 1.021; UROBILINOGEN,URINE NEGATIVE mg/dL (<2.0)
[2017-06-03 16:57] LABS: AMNISURE (ROM) NEGATIVE (NEGATIVE)
[2017-06-03 17:04] LABS: URINE BARBITURATES SCREEN NEGATIVE; URINE METHADONE SCREEN NEGATIVE; URINE OPIATES LOW NEGATIVE; URINE PHENCYCLIDINE SCREEN NEGATIVE
--- NOTE | 2017-06-03 17:20 | L&D Progress Notes ---
PROGRESS NOTES Datetime Report Generated by CPN: 06/03/2017 17:19 PROGRESS NOTE Vital Signs : Reviewed Comment: 22 yo edc gdm non compliant sent from office- pt complaining of leaking fluids amnisure negative treated for trichomonas and ct on 05/31/17 reports finishing meds red, chafing inner groin and mons pubis abdomen nontender fhts reactive/ cat 1 cvx 2/80/-2 soft membranes intact normal discharge noted treat for chafing and yeast precautions reviewed d/c home with instructions pt to schedule nst/ holly for wednesday fkc stressed anticipate SIGNATURE SIGNATURE: 13,[id number];14,[id number];10,[id number] SIGNATURE: 10,5471568301;14,5597454795;13,3171281042 SIGNATURE: 13,0623676947;14,5835596604;10,9370146166 SIGNATURE: 10,9684496238;14,2327253372;13,9342750521 SIGNATURE: 13,3177055655;14,3937209422;10,0899999424 SIGNATURE: 10,0817246395;14,7397226805;13,5320234698 SIGNATURE: 13,4209988513;14,8888392847;10,6964730516 SIGNATURE: 10,2155915133;14,5031706957 SIGNATURE: 14,3639684315;10,2480722058 SIGNATURE: 10,0264024383;14,4157786257 SIGNATURE: 14,4410995829;10,4330054133 Assignment: Guille Muñoz MD Signature: with User ID: [email or web address] : with User ID: [email or web address]
--- NOTE | 2017-06-03 17:34 | Non Stress Test Report ---
Non Stress Test Datetime Report Generated by CPN: 06/03/2017 17:34 DEMOGRAPHIC EGA NST: 40.6 INDICATION Indication for Study: Ordered by Provider Indication for Study (NST) Other: Labor check MONITORING Monitor Explained: Monitor Explained; Test Explained; Patient Verbalized Understanding Time on Monitor: 06/03/2017 16:36 Time off Monitor: 06/03/2017 17:16 NST Duration: 40 NST INTERVENTIONS NST Interventions: PO Hydration Physician Notified NST: A. Emmel CNM BABY A Movement : Present Contraction Frequency : 6-8 FHR Baseline : 140 Accelerations : 15X15 Decelerations : None Variability : Moderate 6-25bpm NST Review: Meets Criteria for Reactive NST NST Review and Verified By : Carmen Caceres RNC NST Results: Reactive NST REPORT Report Trigger: Send Report
== END 2017-06-03 17:33 | disposition home or self-care (01) ==
LOC: LC 16:12
PROVIDERS: ATTEND Obstetrics & Gynecology Gynecology
PROC: 4A1HXCZ Monitoring of Products of Conception, Cardiac Rate, External Approach (ICD-10-PCS; principal; 2017-06-03)
DX: O47.1 False labor at or after 37 completed weeks of gestation (principal); Z3A.40 40 weeks gestation of pregnancy
CPT/HCPCS: 59025; 80307; 81005; 84112

== ENCOUNTER 2017-06-04 02:08 | Inpatient (IN) | payer MEDICAID ==
[2017-06-04] MEDS ORDERED: PENICILLIN G POTASSIUM 5,000,000 UNIT in DEXTROSE 5%-WATER 100 ML IV ONE (02:31)
[2017-06-04] MEDS ORDERED: RINGERS SOLUTION,LACTATED 1,000 ML IV PRN (02:31)
[2017-06-04] MEDS ORDERED: RINGERS SOLUTION,LACTATED 1,000 ML IV ONE (02:31)
[2017-06-04] MEDS ORDERED: PENICILLIN G-K 5 MILLION UNIT VIAL ONE ×3 (02:35→10:13)
[2017-06-04] MEDS ORDERED: LIDOCAINE 1% INJ-PF (10 MG/ML) 30 ML SDV ONE (02:35)
[2017-06-04] MEDS ORDERED: OXYTOCIN/NORMAL SALINE 20 UNIT/1,000 ML RTUINJ ONE (02:35)
[2017-06-04] MEDS ORDERED: MISOPROSTOL 0.2 MG TABLET ONE (02:35)
[2017-06-04] MEDS ORDERED: PENICILLIN G-K 5 MILLION UNIT VIAL IV PRN ×2 (02:37→02:38)
[2017-06-04] MEDS ORDERED: BUPIVACAINE HCL 0.25 % INJ/PF (2.5 MG/1 ML) 30 ML VIAL ONE (03:06)
[2017-06-04] MEDS ORDERED: FENTANYL/BUPIVACAINE/NS/PF 200 MCG/100 ML RTUINJ EPI ONE (03:06)
[2017-06-04] MEDS ORDERED: EPHEDRINE SULFATE INJ 50 MG/1 ML AMPULE ONE (03:06)
[2017-06-04] MEDS ORDERED: FENTANYL/BUPIVACAINE/NS/PF 200 MCG/100 ML RTUINJ EPI PRN (03:13)
[2017-06-04] MEDS ORDERED: BUPIVACAINE HCL 0.25 % INJ/PF (2.5 MG/1 ML) 30 ML VIAL INFIL ONE (03:13)
[2017-06-04] MEDS ORDERED: BENZOIN/ALOE VERA/STORAX/TOLU TINCTURE 60 ML TP PRN (03:13)
[2017-06-04 03:25] LABS: ABSOLUTE BASOPHILS # (AUTO) 0.1 10^3/uL (0.0-0.2); ABSOLUTE EOSINOPHILS # (AUTO) 0.2 10^3/uL (0.0-0.6); ABSOLUTE LYMPHOCYTES (AUTO) 2.6 10^3/uL (0.5-4.7); ABSOLUTE MONOCYTES (AUTO) 1.1 10^3/uL (0.1-1.4); ABSOLUTE NEUT (AUTO) 12.5 10^3/uL (1.7-8.2); BASOPHILS % (AUTO) 0.4 % (0-2); EOSINOPHILS % (AUTO) 1.2 % (0-6); HEMATOCRIT 36.4 % (36.0-47.0); HEMOGLOBIN 12.1 g/dL (12.0-15.5); HGB HCT DIFFERENCE -0.1; LYMPHOCYTES % (AUTO) 15.6 % (13-45); MEAN CORPUSCULAR HEMOGLOBIN 26.4 pg (27.0-33.4); MEAN CORPUSCULAR HGB CONC 33.3 g/dL (32.0-36.0); MEAN CORPUSCULAR VOLUME 79 fl (80-97); MONOCYTES % (AUTO) 6.9 % (3-13); RED BLOOD COUNT 4.59 10^6/uL (3.72-5.28); RED CELL DISTRIBUTION WIDTH 15.2 % (11.5-14.0); SEGMENTED NEUTROPHILS % (AUTO) 75.9 % (42-78); WHITE BLOOD COUNT 16.5 10^3/uL (4.0-10.5)
[2017-06-04 03:29] LABS: APPEARANCE,URINE CLOUDY; BILIRUBIN,URINE NEGATIVE (NEGATIVE); GLUCOSE, URINE NEGATIVE (NEGATIVE); KETONES,URINE NEGATIVE (NEGATIVE); LEUKOCYTE ESTERASE,URINE MODERATE (NEGATIVE); NITRITE,URINE NEGATIVE (NEGATIVE); PROTEIN,URINE NEGATIVE (NEGATIVE); URINE SPECIFIC GRAVITY 1.015; UROBILINOGEN,URINE NEGATIVE mg/dL (<2.0)
[2017-06-04 03:43] LABS: URINE BARBITURATES SCREEN NEGATIVE; URINE METHADONE SCREEN NEGATIVE; URINE OPIATES LOW NEGATIVE; URINE PHENCYCLIDINE SCREEN NEGATIVE
[2017-06-04] MEDS ORDERED: PENICILLIN G POTASSIUM 2,500,000 UNIT in DEXTROSE 5%-WATER 50 ML IV SCH (06:31)
[2017-06-04] MEDS ORDERED: PENICILLIN G-K 5 MILLION UNIT VIAL IV SCH (10:00)
[2017-06-04] MEDS ORDERED: DIPH/PERTUSS(ACELL)/TETANUS VAC/PF 0.5 ML SYR (>=10YO) IM PRN (12:08)
[2017-06-04] MEDS ORDERED: MEASLES,MUMPS&RUBELLA VACC/PF 0.5 ML VIAL SUBCUT PRN (12:08)
[2017-06-04] MEDS ORDERED: OXYTOCIN/NORMAL SALINE 20 UNIT/1,000 ML RTUINJ IV PRN (12:08)
[2017-06-04] MEDS ORDERED: DIBUCAINE 1% OINTMENT 28 GM TP PRN (12:08)
[2017-06-04] MEDS ORDERED: ZOLPIDEM TARTRATE 5 MG TABLET PO PRN (12:08)
[2017-06-04] MEDS ORDERED: BENZOCAINE/MENTHOL AEROSOL SPRAY 56 ML TOP PRN (12:08)
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
--- NOTE | 2017-06-04 13:40 | Delivery Summary ---
Del Sum A-C Datetime Report Generated by CPN: 06/04/2017 13:40 DELIVERY PERSONNEL DELIVERY PERSONNEL: [id number] Delivery Doctor:: Krystle Davis CNM Nurse Billet Driller Certified:: Krystle Davis CNM Labor and Delivery Nurse:: Emily Ferguson RN Labor and Delivery Nurse:: BELINDA Reynaga Student Observers:: none Hand Cultivator/GENERAL LITHOGRAPHIC WORKER: Dona Butt, ST MATERNAL INFORMATION Delivery Anesthesia: Epidural Medications After Delivery: Pitocin Bolus-Please Comment Estimated Blood Loss (ml): 300 Maternal Complications: None Other Maternal Complications: none Provider Comments: SVDVF over intact perineum, OA to SHELLEY with nuchal cord,unable to reduce. Somersaulted through. Infant vigorous, to mothers abd. Cord clamped x 2 cut per FOB. Placenta via Davis mechanism. FF immediately. Hemostasis achieved. EBL 300, Apgars 9,9. Mother and infant stable. LABOR SUMMARY EDC: 05/28/2017 00:00 No. Babies in Womb: 1 Attempted: No Labor Anesthesia: Epidural LABOR INFORMATION Reason for Induction: Not Applicable Onset of Labor: 06/04/2017 02:27 Complete Dilatation: 06/04/2017 10:35 Oxytocin: N/A Group B Beta Strep: Positive Antibiotics # of Doses: 3 Antibiotics Time of Last Dose: 1030 Name of Antibiotic Given: PCN Steroids Given: None Reason Steroids Not Administered: Not Applicable MEMBRANES Membranes Rupture Method: Spontaneous Rupture of Membranes: 06/04/2017 06:12 Length of Rupture (hr): 5.12 Amniotic Fluid Color: Clear Amniotic Fluid Amount: Moderate Amniotic Fluid Odor: Normal STAGES OF LABOR Stage 1 hr: 8 Stage 1 min: 8 Stage 2 hr: 0 Stage 2 min: 44 Stage 3 hr: 0 Stage 3 min: 3 Total Time in Labor hr: 8 Total Time in Labor min: 55 VAGINAL DELIVERY Episiotomy: None Laceration #1: Vaginal Laceration Extension #1: First Degree Other Laceration: Rt labilal 1* Laceration Repair Note: repairs with Chromic suture Sponge Count Correct: N/A CSECTION DELIVERY Primary Indication: N/A Secondary Indication: N/A CSection Incidence: N/A Labor: N/A Elective: N/A CSection Incision: N/A BABY A INFORMATION Infant Delivery Date/Time: 06/04/2017 11:19 Method of Delivery: Vaginal Born in Route : No : N/A Forceps: N/A Vacuum Extraction: N/A Shoulder Dystocia : No PRESENTATION/POSITION BABY A Presentation: Cephalic Cephalic Presentation: Vertex Vertex Position: Right Occipital Anterior Breech Presentation: N/A PLACENTA INFORMATION BABY A Placenta Delivery Time : 06/04/2017 11:22 Placenta Method of Delivery: Spontaneous Placenta Status: Delivered SCORES BABY A Heart Rate 1 min: >100 bpm Resp Effort 1 min: Good Cry Reflex Irritability 1 min: Cough or Sneeze or Pulls Away Muscle Tone 1 min: Active Motion Color 1 min: Body [place], Extremities Blue Resuscitation Effort 1 min: Tactile Stimulation SCORE 1 MIN: 9 Heart Rate 5 min: >100 bpm Resp Effort 5 min: Good Cry Reflex Irritability 5 min: Cough or Sneeze or Pulls Away Muscle Tone 5 min: Active Motion Color 5 min: Body [place], Extremities Blue Resuscitation Effort 5 min: N/A SCORE 5 MIN: 9 Resuscitation Effort 10 min: N/A INFORMATION BABY A Gestational Age at Delivery: 41.0 Gestational Status: Late Term- 41- 41.6 Weeks Outcome : Liveborn Condition : Stable Sex: Female IDENTIFICATION BABY A Verification Date/Time: 06/04/2017 11:33 ID Band Number: [id number] Mother's Name Verified: Yes RN Verifying Infant: A.Laureline RN/ KAngeli Morris RNC WEIGHT/LENGTH BABY A Birthweight (gm): 3580 Weight (lb): 7 Weight (oz): 14 Length (in): 20.50 Infant Length (cm): 52.07 CORD INFORMATION BABY A No. Cord Vessels: 3 Nuchal Cord : Around Neck x1, Loose Cord Blood Taken: Yes-For Eval (Mom's Blood Type - or O+) Infant Suction: Mouth; Nose ASSESSMENT BABY A Infant Complications: None Physical Findings at Delivery: [place] Spots Respirations: Appears Normal Skin to Skin: Yes Skin to Skin Time (min): 60 Oil Dispatcher/ALS Called : No Care By: Emma Ferguson RN Transferred To: Remains with Mother BABY B INFORMATION : N/A SIGNATURES Assignment: Madonna Jean MD Signature: with User ID: [email or web address] : with User ID: [email or web address] : I was personally available for consultation and serving as supervising physician for the MLP.
[2017-06-04] MEDS ORDERED: INFLUENZA ADLT QUAD (36MOS+) 2017-18 VAC 0.5 ML SYR IM PRN (14:11)
[2017-06-04] MEDS: IBUPROFEN 800 MG TABLET PO SCH ×2 (14:41→22:13)
[2017-06-04] MEDS: FERROUS SULFATE 325 MG TABLET PO SCH (17:41)
[2017-06-04] MEDS: DOCUSATE SODIUM 100 MG CAPSULE PO SCH (17:42)
[2017-06-05] MEDS: IBUPROFEN 800 MG TABLET PO SCH ×3 (05:58→21:17)
[2017-06-05 07:30] LABS: HEMATOCRIT 30.9 % (36.0-47.0); HEMOGLOBIN 10.4 g/dL (12.0-15.5); HGB HCT DIFFERENCE 0.3; MEAN CORPUSCULAR HEMOGLOBIN 26.8 pg (27.0-33.4); MEAN CORPUSCULAR HGB CONC 33.7 g/dL (32.0-36.0); MEAN CORPUSCULAR VOLUME 80 fl (80-97); RED BLOOD COUNT 3.87 10^6/uL (3.72-5.28); RED CELL DISTRIBUTION WIDTH 15.4 % (11.5-14.0); WHITE BLOOD COUNT 17.5 10^3/uL (4.0-10.5)
[2017-06-05] MEDS: PRENATAL VITAMIN W DHA CAPSULE PO SCH (08:11)
--- NOTE | 2017-06-05 09:23 | PDOC PROGRESS REPORT ---
Subjective-OB Subjective: Post Delivery Day: 1 22 year old. Denies any needs at this time, states lochia is stable, pain well controlled, voiding without difficulty, tolerating diet. Physical Exam (OB) Vital Signs: Temp Pulse Resp BP Pulse Ox 97.7 F 83 22 H 114/63 100 06/04/17 19:33 06/04/17 19:33 06/04/17 19:33 06/04/17 19:33 06/04/17 19:33 Intake & Output 06/04/17 06/05/17 06/06/17 06:59 06:59 06:59 Intake Total 450 Balance 450 Weight 99.7 kg - PIH/Pre-Eclampsia Visual Changes: No - Lochia Lochia Amount: Scant < 10 ml Lochia Color: Rubra/Red - Abdomen Description: Soft, Flat Hernia Present: No Fundal Description: Firm, Midline Fundal Height: 1/u - 2/u Objective-Diagnostic Laboratory: 06/05/17 06:58 06/05/17 06:58 WBC 17.5 H RBC 3.87 Hgb 10.4 L Hct 30.9 L MCV 80 MCH 26.8 L MCHC 33.7 RDW 15.4 H Plt Count 182 Assessment and Plan(PN) - Assessment and Plan (1) Vaginal delivery Is this a current diagnosis for this admission?: Yes Plan: routine pp care - Time Spent with Patient Time with patient: Less than 15 minutes Critical Time spent with patient: Less than 15 minutes Medications reviewed and adjusted accordingly: Yes - Disposition Anticipated Discharge: Home Within: within 24 hours
[2017-06-05] MEDS: FERROUS SULFATE 325 MG TABLET PO SCH ×2 (10:11→18:18)
[2017-06-05] MEDS: SENNOSIDES/DOCUSATE 8.6-50 MG 1 EACH TABLET PO SCH (10:11)
[2017-06-05] MEDS: DOCUSATE SODIUM 100 MG CAPSULE PO SCH ×2 (10:11→18:18)
[2017-06-06] MEDS: IBUPROFEN 800 MG TABLET PO SCH (05:20)
[2017-06-06 08:37] VITALS: BP 123/55
[2017-06-06] MEDS: PRENATAL VITAMIN W DHA CAPSULE PO SCH (09:10)
[2017-06-06] MEDS: SENNOSIDES/DOCUSATE 8.6-50 MG 1 EACH TABLET PO SCH (09:12)
[2017-06-06] MEDS: FERROUS SULFATE 325 MG TABLET PO SCH (09:12)
[2017-06-06] MEDS: DOCUSATE SODIUM 100 MG CAPSULE PO SCH (09:12)
--- NOTE | 2017-06-06 09:36 | PDOC DISCHARGE SUMMARY ---
Final Diagnosis Discharge Date: 06/06/17 - Final Diagnosis (1) Vaginal delivery Is this a current diagnosis for this admission?: Yes Discharge Data - Discharge Medication Prescriptions: Docusate Sodium [Colace 100 mg Capsule] 100 mg PO BID #60 capsule Ferrous Sulfate [Feosol 325 mg Tablet] 325 mg PO BID #60 tablet Ibuprofen [Motrin 800 mg Tablet] 800 mg PO Q8 #60 tablet Home Medications: Prenat 115/Iron Fum/Folic/Dss [ 19 Tablet] 1 each PO DAILY 03/08/17 Docusate Sodium [Colace 100 mg Capsule] 100 mg PO BID #60 capsule 06/06/17 Ferrous Sulfate [Feosol 325 mg Tablet] 325 mg PO BID #60 tablet 06/06/17 Ibuprofen [Motrin 800 mg Tablet] 800 mg PO Q8 #60 tablet 06/06/17 Gestational Age: 41 Reason(s) for Admission: Onset of Labor, Group B Strep Positive Procedures: NST Intrapartum Procedure(s): Spontaneous Vaginal Delivery Complication(s): Laceration-Perineal Laceration-Degree: 1st - Data Baby 1 Female at 1 minute: 9 at 5 minutes: 9 Weight: 3580 kg Home with Mother: Yes Complications: No - Diagnosis Test Laboratory: Temp Pulse Resp BP Pulse Ox 98.1 F 73 16 123/55 L 100 06/06/17 09:27 06/06/17 09:27 06/06/17 09:27 06/06/17 08:18 06/06/17 09:27 06/04/17 06/04/17 06/05/17 02:25 03:15 06:58 RBC 4.59 3.87 Hgb 12.1 10.4 L Hct 36.4 30.9 L Urine Opiates Screen NEGATIVE - Discharge information/Instructions Discharge Activity: Balance Activity w/Rest, Pelvic Rest Discharge Diet: Regular Disposition: HOME, SELF-CARE Follow up with: [facility] in: 4, Weeks
== END 2017-06-06 13:21 | disposition home or self-care (01) | DRG 775 ==
LOC: LC 02:08 → LR 02:31 → 2S 13:25
PROVIDERS: ADMIT Obstetrics & Gynecology Gynecology; ATTEND Obstetrics & Gynecology Gynecology
PROC: 10E0XZZ Delivery of Products of Conception, External Approach (ICD-10-PCS; principal; 2017-06-04)
PROC: 0HQ9XZZ Repair Perineum Skin, External Approach (ICD-10-PCS; 2017-06-04)
PROC: 4A1HXCZ Monitoring of Products of Conception, Cardiac Rate, External Approach (ICD-10-PCS; 2017-06-04)
PROC: 3E0234Z Introduction of Serum, Toxoid and Vaccine into Muscle, Percutaneous Approach (ICD-10-PCS; 2017-06-06)
DX: O48.0 Post-term pregnancy (principal); O70.0 First degree perineal laceration during delivery; O99.824 Streptococcus B carrier state complicating childbirth; O24.420 Gestational diabetes mellitus in childbirth, diet controlled; O69.81X0 Labor and delivery complicated by cord around neck, without compression, not applicable or unspecified; Z23 Encounter for immunization; Z91.81 History of falling; Z3A.41 41 weeks gestation of pregnancy; Z37.0 Single live birth
CPT/HCPCS: 36415; 80307; 81005; 85025; 85027; 86592; 86850; 86900; 86901; 90686; 90715; 94760; J2540; J2590; J3490

== ENCOUNTER 2017-06-28 05:16 | Emergency (ER) | payer MEDICAID ==
[2017-06-28 05:33] VITALS: BP 124/65
[2017-06-28] MEDS ORDERED: CEPHALEXIN 500 MG CAPSULE PO ONE (05:41)
[2017-06-28] MEDS ORDERED: ONDANSETRON 4 MG TAB.RAPDIS PO ONE (05:41)
[2017-06-28] MEDS ORDERED: LIDOCAINE 1% INJ-PF (10 MG/ML) 30 ML SDV INFIL ONE (05:50)
[2017-06-28] MEDS ORDERED: CEFTRIAXONE INJ 250 MG VIAL IM ONE (05:50)
[2017-06-28] MEDS ORDERED: AZITHROMYCIN 250 MG TABLET PO ONE (05:53)
--- NOTE | 2017-06-28 05:55 | ER Document Report ---
ED GI/ - General Chief Complaint: Pain With Urination Stated Complaint: PAINFUL URINATION Time Seen by Provider: 06/28/17 05:41 Notes: Patient is a 22-year-old female who comes in complaining of dysuria and urgency as well as frequency. Patient delivered recently. Vaginal spontaneous delivery. Patient has not had intercourse since then. Patient does state that she has been using the same toilet as her roommate who she believes has STDs. Patient also has had headaches on and off although she has none currently. Gets migraines. No HASKINS currently. No abdominal pain. She has been nauseated on and off. Slight nausea currently. No vomiting or diarrhea. No abdominal pain. Denies any past medical history. TRAVEL OUTSIDE OF THE [place] IN LAST 30 DAYS: No - HPI Patient complains to provider of: Dysuria Timing/Duration: Gradual Sexual history: Inactive Exacerbated by: Denies Relieved by: Denies - Related Data Allergies/Adverse Reactions: No Known Allergies Allergy (Verified 06/04/17 06:33) Past Medical History - Social History Smoking Status: Never Smoker Chew tobacco use (# tins/day): No Frequency of alcohol use: None Drug Abuse: None Family History: Reviewed & Not Pertinent Patient has suicidal ideation: No Patient has homicidal ideation: No Neurological Medical History: Reports: Hx Migraine Renal/ Medical History: Denies: Hx Peritoneal Dialysis Surgical Hx: Negative - Immunizations Hx Diphtheria, Pertussis, Tetanus Vaccination: Yes Review of Systems - Review of Systems Constitutional: No symptoms reported EENT: No symptoms reported Cardiovascular: No symptoms reported Respiratory: No symptoms reported Gastrointestinal: No symptoms reported Genitourinary: See HPI Female Genitourinary: No symptoms reported Musculoskeletal: No symptoms reported Skin: No symptoms reported Hematologic/Lymphatic: No symptoms reported Neurological/Psychological: See HPI Physical Exam - Vital signs Vitals: Temp Pulse Resp BP Pulse Ox 98.0 F 83 18 124/65 96 06/28/17 05:31 06/28/17 05:31 06/28/17 05:31 06/28/17 05:31 06/28/17 05:31 Interpretation: Normal - General General appearance: Appears well, Alert - HEENT Head: Normocephalic, Atraumatic Eyes: Normal Pupils: PERRL - Respiratory Respiratory status: No respiratory distress Chest status: Nontender Breath sounds: Normal Chest palpation: Normal - Cardiovascular Rhythm: Regular Heart sounds: Normal auscultation Murmur: No - Abdominal Inspection: Normal Distension: No distension Bowel sounds: Normal Tenderness: Nontender Organomegaly: No organomegaly - Back Back: Normal, Nontender - Extremities General upper extremity: Normal inspection, Nontender, Normal color, Normal ROM , Normal temperature General lower extremity: Normal inspection, Nontender, Normal color, Normal ROM , Normal temperature, Normal weight bearing. No: Stanislav's sign - Neurological Neuro grossly intact: Yes Cognition: Normal Orientation: AAOx4 Bowen Coma Scale Eye Opening: Spontaneous Bowen Coma Scale Verbal: Oriented Bowen Coma Scale Motor: Obeys Commands [place] Coma Scale Total: 15 Speech: Normal Motor strength normal: LUE, RUE, LLE, RLE Sensory: Normal - Psychological Associated symptoms: Normal affect, Normal mood - Skin Skin Temperature: Warm Skin Moisture: Dry Skin Color: Normal Course - Re-evaluation Re-evalutation: 06/28/17 05:53 Patient with dysuria. Patient has not had sex since delivery. Have not learned that her significant other is being treated for an STD currently in the emergency department. Unlikely that the patient has STD but will be covered as her current partner with whom she just had a child is also being treated for STDs. Patient will have Rocephin and azithromycin. Urine culture will be sent. - Vital Signs Vital signs: Temp Pulse Resp BP Pulse Ox 98.0 F 83 18 124/65 96 06/28/17 05:31 06/28/17 05:31 06/28/17 05:31 06/28/17 05:31 06/28/17 05:31 Discharge - Discharge Clinical Impression: UTI (urinary tract infection) Condition: Stable Disposition: HOME, SELF-CARE Instructions: Urinary Tract Infection ([facility]) Additional Instructions: Please follow-up with your doctor this week. Prescriptions: Ondansetron [Zofran Odt 4 mg Tablet] 1 tab PO Q6HP PRN #20 tab.rapdis PRN Reason: For Nausea/Vomiting Cephalexin Monohydrate [Keflex 500 mg Capsule] 500 mg PO QID #28 capsule Metoclopramide HCl [Reglan 10 mg Tablet] 1 tab PO TIDP PRN #25 tablet PRN Reason:
[2017-06-28] MEDS ORDERED: ONDANSETRON ODT 4 MG TAB (6 TAB/ER DISP) PO PRN (05:58)
[2017-06-28 06:13] LABS: APPEARANCE,URINE SLIGHTLY-CLOUDY; BILIRUBIN,URINE NEGATIVE (NEGATIVE); COLOR,URINE YELLOW; GLUCOSE, URINE NEGATIVE (NEGATIVE); KETONES,URINE NEGATIVE (NEGATIVE); LEUKOCYTE ESTERASE,URINE MODERATE (NEGATIVE); NITRITE,URINE NEGATIVE (NEGATIVE); PROTEIN,URINE NEGATIVE (NEGATIVE); URINE SPECIFIC GRAVITY 1.029
== END 2017-06-28 06:28 | disposition home or self-care (01) ==
LOC: ER 05:16
DX: N39.0 Urinary tract infection, site not specified (principal); R30.0 Dysuria; R35.0 Frequency of micturition; R39.15 Urgency of urination; R11.0 Nausea
CPT/HCPCS: 99283; 87086; 81025; 87088; 81001; Q0144; S0119; J3490; J0696

== ENCOUNTER 2017-07-09 19:21 | Emergency (ER) | payer MEDICAID ==
--- NOTE | 2017-07-09 21:00 | ER Document Report ---
ED GI/ - General Chief Complaint: Abdominal Pain Stated Complaint: RIGHT SIDE PAIN Time Seen by Provider: 07/09/17 20:10 Notes: 22-year-old female patient 1 month complain of pain in the right lower quadrant. Pain is gotten worse over the last couple of days. Some nausea. Some diarrhea. Denies any fever, chills, sweats. No prior surgeries. Still has her gallbladder and appendix. States that eating seems to make her abdomen hurt more. TRAVEL OUTSIDE OF THE [place] IN LAST 30 DAYS: No - HPI Patient complains to provider of: Abdominal pain, Diarrhea. No: Dysuria, Flank pain, , Urinary retention, Vaginal bleeding Onset: Yesterday Timing/Duration: Gradual Quality of pain: Cramping Severity at maximum: Moderate Severity in ED: Moderate Pain Level: 2 Context: denies: Bad food, Lifting, Location: RUQ, RLQ Vaginal bleeding (Compared to normal period): None Associated symptoms: Diarrhea, Nausea Exacerbated by: Other - Palpating the area seems to make pain worse - Related Data Allergies/Adverse Reactions: No Known Allergies Allergy (Verified 07/09/17 19:23) Past Medical History - General Information source: Patient - Social History Smoking Status: Never Smoker Chew tobacco use (# tins/day): No Frequency of alcohol use: None Drug Abuse: None Lives with: Family Family History: Reviewed & Not Pertinent Patient has suicidal ideation: No Patient has homicidal ideation: No Neurological Medical History: Reports: Hx Migraine Renal/ Medical History: Denies: Hx Peritoneal Dialysis - Immunizations Hx Diphtheria, Pertussis, Tetanus Vaccination: Yes Review of Systems - Review of Systems Constitutional: denies: Fever, Malaise, Weakness EENT: No symptoms reported Cardiovascular: denies: Chest pain, Palpitations, Heart racing Respiratory: denies: Cough, Hurts to breathe, Short of breath Gastrointestinal: Abdominal pain, Diarrhea, Nausea Genitourinary: denies: Burning, Dysuria, Discharge Female Genitourinary: denies: Vaginal discharge, Vaginal bleeding, Vaginal odor Musculoskeletal: denies: Back pain, Joint pain, Muscle pain, Muscle stiffness Skin: No symptoms reported Neurological/Psychological: No symptoms reported Physical Exam - Vital signs Vitals: Temp Pulse Resp BP Pulse Ox 98.5 F 62 20 129/75 H 100 07/09/17 19:48 07/09/17 19:48 07/09/17 19:48 07/09/17 19:48 07/09/17 19:48 Interpretation: Normal - General General appearance: Appears well, Alert - HEENT Head: Normocephalic, Atraumatic Eyes: Normal Pupils: PERRL - Respiratory Respiratory status: No respiratory distress Chest status: Nontender Breath sounds: Normal Chest palpation: Normal - Cardiovascular Rhythm: Regular Heart sounds: Normal auscultation Murmur: No - Abdominal Inspection: Normal Distension: No distension Bowel sounds: Normal Tenderness: Tender, Other - She has some mild tenderness to palpation right lower quadrant. no guarding. No rebound. Organomegaly: No organomegaly - Back Back: Normal, Nontender - Extremities General upper extremity: Normal inspection, Nontender, Normal color, Normal ROM , Normal temperature General lower extremity: Normal inspection, Nontender, Normal color, Normal ROM , Normal temperature, Normal weight bearing. No: Stanislav's sign - Neurological Neuro grossly intact: Yes Cognition: Normal Orientation: AAOx4 Bowen Coma Scale Eye Opening: Spontaneous Bowen Coma Scale Verbal: Oriented [place] Coma Scale Motor: Obeys Commands Bowen Coma Scale Total: 15 Speech: Normal Motor strength normal: LUE, RUE, LLE, RLE Sensory: Normal - Psychological Associated symptoms: Normal affect, Normal mood - Skin Skin Temperature: Warm Skin Moisture: Dry Skin Color: Normal Course - Re-evaluation Re-evalutation: 07/09/17 22:15 Labs show elevated WBC count. Tenderness in the right lower quadrant. Will proceed at this time with CT scan of the abdomen and pelvis as I cannot rule out a appendicitis at this time. 07/09/17 23:58 Slightly elevated WBC count but otherwise labs unremarkable. CT scan of the abdomen reveals normal CT scan. 24 hour follow-up instructions will be given regarding abdominal pain. Patient verbalized understanding of instructions. Will discharge at this time in stable condition. - Vital Signs Vital signs: Temp Pulse Resp BP Pulse Ox 98.5 F 62 20 129/75 H 100 07/09/17 19:48 07/09/17 19:48 07/09/17 19:48 07/09/17 19:48 07/09/17 19:48 - Laboratory Result Diagrams: 07/09/17 20:30 07/09/17 20:30 Laboratory results interpreted by me: 0107/09/17 07/09/17 20:30 20:30 20:30 WBC 13.9 H Hgb 11.7 L MCH 26.0 L RDW 15.5 H Absolute Neutrophils 10.1 H BUN 6 L Total Bilirubin 0.1 L Urine Blood MODERATE H Urine Urobilinogen 4.0 H Discharge - Discharge Clinical Impression: Right lower quadrant abdominal pain Condition: Good Disposition: HOME, SELF-CARE Instructions: Abdominal Pain ([facility]) Additional Instructions: In the event that the pain in the abdomen gets worse or not getting better over the next 24 hours you should return for a repeat exam or follow-up with your regular doctor for repeat exam. Sometimes because of abdominal pain is very difficult to diagnose and it will require more testing. Continue to eat and drink as tolerated. Take ibuprofen every 8 hours as needed for pain. Prescriptions: Ibuprofen [Motrin 600 Mg Tablet] 600 mg PO TID #15 tablet Referrals: FALLON HICKS MD [Primary Care Provider] - Follow up as needed
[2017-07-09 21:01] LABS: ABSOLUTE BASOPHILS # (AUTO) 0.1 10^3/uL (0.0-0.2); ABSOLUTE EOSINOPHILS # (AUTO) 0.6 10^3/uL (0.0-0.6); ABSOLUTE LYMPHOCYTES (AUTO) 2.4 10^3/uL (0.5-4.7); ABSOLUTE MONOCYTES (AUTO) 0.7 10^3/uL (0.1-1.4); ABSOLUTE NEUT (AUTO) 10.1 10^3/uL (1.7-8.2); BASOPHILS % (AUTO) 0.4 % (0-2); EOSINOPHILS % (AUTO) 4.6 % (0-6); HEMATOCRIT 36.2 % (36.0-47.0); HEMOGLOBIN 11.7 g/dL (12.0-15.5); LYMPHOCYTES % (AUTO) 17.1 % (13-45); MEAN CORPUSCULAR HGB CONC 32.4 g/dL (32.0-36.0); MEAN CORPUSCULAR VOLUME 80 fl (80-97); MONOCYTES % (AUTO) 5.3 % (3-13); PLATELET COUNT 281 10^3/uL (150-450); RED BLOOD COUNT 4.52 10^6/uL (3.72-5.28); RED CELL DISTRIBUTION WIDTH 15.5 % (11.5-14.0); SEGMENTED NEUTROPHILS % (AUTO) 72.6 % (42-78); TOTAL CELLS COUNTED % (AUTO) 100 %; WHITE BLOOD COUNT 13.9 10^3/uL (4.0-10.5)
--- NOTE | 2017-07-09 21:03 | ER Document Report ---
ED Medical Screen (RME) - General Chief Complaint: Abdominal Pain Stated Complaint: RIGHT SIDE PAIN Time Seen by Provider: 07/09/17 20:10 Mode of Arrival: Ambulatory Information source: Patient Notes: 22-year-old female presents with RLQ pain, pt denies any fevers or chills, admits to vag bleeding I have greeted and performed a rapid initial assessment of this patient. A comprehensive ED assessment and evaluation of the patient, analysis of test results and completion of the medical decision making process will be conducted by additional ED providers. PHYSICAL EXAMINATION: GENERAL: Well-appearing, well-nourished and in no acute distress. HEAD: Atraumatic, normocephalic. EYES: Pupils equal round extraocular movements intact, conjunctiva are normal. ENT: Nares patent NECK: Normal range of motion LUNGS: No respiratory distress Musculoskeletal: Normal range of motion NEUROLOGICAL: Normal speech, normal gait. PSYCH: Normal mood, normal affect. SKIN: Warm, Dry, normal turgor, no rashes or lesions noted. TRAVEL OUTSIDE OF THE [place] IN LAST 30 DAYS: No - Related Data Allergies/Adverse Reactions: No Known Allergies Allergy (Verified 07/09/17 19:23) Past Medical History - Social History Chew tobacco use (# tins/day): No Frequency of alcohol use: None Drug Abuse: None Neurological Medical History: Reports: Hx Migraine Renal/ Medical History: Denies: Hx Peritoneal Dialysis - Immunizations Hx Diphtheria, Pertussis, Tetanus Vaccination: Yes History of Influenza Vaccine for 03/2017 - 08/2017 Season: No Physical Exam - Vital signs Vitals: Temp Pulse Resp BP Pulse Ox 98.5 F 62 20 129/75 H 100 07/09/17 19:48 07/09/17 19:48 07/09/17 19:48 07/09/17 19:48 07/09/17 19:48 Course - Vital Signs Vital signs: Temp Pulse Resp BP Pulse Ox 98.5 F 62 20 129/75 H 100 07/09/17 19:48 07/09/17 19:48 07/09/17 19:48 07/09/17 19:48 07/09/17 19:48
[2017-07-09 21:06] LABS: APPEARANCE,URINE CLEAR; BILIRUBIN,URINE NEGATIVE (NEGATIVE); COLOR,URINE YELLOW; GLUCOSE, URINE NEGATIVE (NEGATIVE); KETONES,URINE NEGATIVE (NEGATIVE); LEUKOCYTE ESTERASE,URINE NEGATIVE (NEGATIVE); NITRITE,URINE NEGATIVE (NEGATIVE); PROTEIN,URINE NEGATIVE (NEGATIVE)
[2017-07-09 21:19] LABS: ALANINE AMINOTRANSFERASE 41 U/L (9-52); ALBUMIN 3.9 g/dL (3.5-5.0); ALKALINE PHOSPHATASE 124 U/L (38-126); ANION GAP 10 (5-19); ASPARTATE AMINO TRANSFERASE 24 U/L (14-36); BILIRUBIN,DIRECT 0.1 mg/dL (0.0-0.4); BILIRUBIN,TOTAL 0.1 mg/dL (0.2-1.3); BLOOD UREA NITROGEN 6 mg/dL (7-20); CALCIUM 8.9 mg/dL (8.4-10.2); CARBON DIOXIDE 27 mmol/L (22-30); CHLORIDE 104 mmol/L (98-107); GLUCOSE 82 mg/dL (75-110); LIPASE 53.2 U/L (23-300); POTASSIUM 3.8 mmol/L (3.6-5.0); SODIUM 141.3 mmol/L (137-145); TOTAL PROTEIN 6.6 g/dL (6.3-8.2)
--- NOTE | 2017-07-09 23:52 | RADIOLOGY REPORT (SQ) ---
EXAM DESCRIPTION: CT ABD/PELVIS WITH IV ONLY CLINICAL HISTORY: 22 years Female, RLQ pain COMPARISON: None. TECHNIQUE: 100 mL Isovue-370 IV contrast. Coronal and sagittal reformat. This exam was performed according to our departmental dose-optimization program, which includes automated exposure control, adjustment of the mA and/or kV according to patient size and/or use of iterative reconstruction technique. FINDINGS: No acute findings. No free fluid. Normal appendix. Inferior thorax, liver, gallbladder, pancreas, spleen, adrenals, renal system, gastrointestinal tract, pelvic organs, lymphatics, vasculature, and musculoskeleton appear otherwise unremarkable. IMPRESSION: Normal CT of the abdomen and pelvis.
[2017-07-09] MEDS ORDERED: KETOROLAC TROMETHAMINE INJ/PF 30 MG/1 ML SDV IV ONE (23:58)
[2017-07-10 00:15] VITALS: BP 122/74
== END 2017-07-10 00:14 | disposition home or self-care (01) ==
LOC: ER 19:21
DX: O90.89 Other complications of the puerperium, not elsewhere classified (principal); R10.31 Right lower quadrant pain; R10.11 Right upper quadrant pain; R11.0 Nausea; R19.7 Diarrhea, unspecified; D72.829 Elevated white blood cell count, unspecified
CPT/HCPCS: 99284; 96374; 36415; 83690; 85025; 81025; 80053; 81001; 74177; J1885